=== PATIENT | male | born 1970 | race American Indian/Alaskan Native ===

== ENCOUNTER 2019-03-07 18:58 | Emergency (ER) | payer OTHER ==
[2019-03-07] MEDS ORDERED: ATROVENT IH ONE ×3 (19:25→21:02)
[2019-03-07] MEDS ORDERED: XOPENEX IH ONE ×2 (19:25→21:03)
[2019-03-07] MEDS ORDERED: LEVALBUTEROL IH ONE ×2 (19:25→19:36)
[2019-03-07] MEDS ORDERED: SOLU-Medrol IV ONE (19:27)
[2019-03-07] MEDS ORDERED: MAGNESIUM SULFATE 2GM/50ML 2 GM/50 ML BAG IV ONE (19:27)
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
--- NOTE | 2019-03-07 20:07 | XRay Report ---
CHEST 1 VIEW 7:29 PM INDICATION / CLINICAL INFORMATION: SOB. Asthma. COMPARISON: None available. FINDINGS: SUPPORT DEVICES: None. HEART / MEDIASTINUM: The heart size and pulmonary vasculature are normal. LUNGS / PLEURA: No significant pulmonary or pleural abnormality. No pneumothorax. ADDITIONAL FINDINGS: No significant additional findings. IMPRESSION: No acute findings. Signer Name: Kalyan Stacy MD Signed: 03/07/2019 8:03 PM Workstation Name: [id number]
[2019-03-07 20:13] LABS: Basophils # (Auto) 0.1 K/mm3 (0.0-0.1); Basophils % (Auto) 0.9 % (0.0-1.8); Eosinophils # (Auto) 0.8 K/mm3 (0.0-0.4); Eosinophils % (Auto) 10.2 % (0.0-4.3); Hematocrit 43.2 % (35.5-45.6); Hemoglobin 14.1 gm/dl (11.8-15.2); Lymphocytes # (Auto) 2.6 K/mm3 (1.2-5.4); Lymphocytes % (Auto) 34.2 % (13.4-35.0); Mean Corpuscular HGB Conc 33 % (32-34); Mean Corpuscular Volume 86 fl (84-94); Monocytes # (Auto) 0.7 K/mm3 (0.0-0.8); Monocytes % (Auto) 8.8 % (0.0-7.3); Platelet Count 263 K/mm3 (140-440); Red Blood Count 5.02 M/mm3 (3.65-5.03); Red Cell Distribution Width 16.2 % (13.2-15.2)
[2019-03-07 20:53] LABS: BUN/Creatinine Ratio 11; Blood Urea Nitrogen 11 mg/dL (9-20); Calcium 9.1 mg/dL (8.4-10.2); Hemolysis Index 26
[2019-03-07 22:26] VITALS: BP 144/74
== END 2019-03-07 22:33 | disposition home or self-care (01) ==
LOC: ED 18:58
DX: J45.901 Unspecified asthma with (acute) exacerbation (principal); Z88.8 Allergy status to other drugs, medicaments and biological substances
CPT/HCPCS: 36415; 71045; 80048; 83880; 85025; 93005; 93010; 94640; 94644; 94760; 96365; 96375; 99284; J2930; J3475

== ENCOUNTER 2019-03-31 00:06 | Inpatient (IN) | payer OTHER ==
[2019-03-31] MEDS ORDERED: XOPENEX IH ONE (00:12)
[2019-03-31] MEDS ORDERED: ATROVENT IH ONE (00:13)
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
[2019-03-31 00:54] LABS: Basophils % (Auto) 0.7 % (0.0-1.8); Eosinophils # (Auto) 0.6 K/mm3 (0.0-0.4); Eosinophils % (Auto) 8.6 % (0.0-4.3); Hematocrit 44.2 % (35.5-45.6); Hemoglobin 14.4 gm/dl (11.8-15.2); Lymphocytes # (Auto) 2.7 K/mm3 (1.2-5.4); Lymphocytes % (Auto) 37.3 % (13.4-35.0); Mean Corpuscular HGB Conc 33 % (32-34); Mean Corpuscular Volume 86 fl (84-94); Monocytes # (Auto) 0.6 K/mm3 (0.0-0.8); Monocytes % (Auto) 8.5 % (0.0-7.3); Platelet Count 258 K/mm3 (140-440); Red Blood Count 5.13 M/mm3 (3.65-5.03); Red Cell Distribution Width 15.9 % (13.2-15.2)
--- NOTE | 2019-03-31 01:05 | XRay Report ---
CHEST 1 VIEW INDICATION / CLINICAL INFORMATION: sob. COMPARISON: 03/07/2019 FINDINGS: SUPPORT DEVICES: None. HEART / MEDIASTINUM: No significant abnormality. LUNGS / PLEURA: No significant pulmonary or pleural abnormality. No pneumothorax. ADDITIONAL FINDINGS: No significant additional findings. IMPRESSION: No acute disease or interval change from 03/07/2019 Signer Name: Nnamdi Henriquez MD FACR Signed: 03/31/2019 1:00 AM Workstation Name: [id number]
[2019-03-31 01:15] LABS: BUN/Creatinine Ratio 15; Blood Urea Nitrogen 15 mg/dL (9-20); Calcium 8.7 mg/dL (8.4-10.2); Hemolysis Index 39
[2019-03-31] MEDS ORDERED: APRESOLINE IV ONE (02:05)
[2019-03-31] MEDS ORDERED: XOPENEX IH PRN (02:50)
[2019-03-31] MEDS ORDERED: ATROVENT IH PRN (02:51)
[2019-03-31] MEDS ORDERED: APRESOLINE IV PRN (02:52)
[2019-03-31] MEDS ORDERED: TYLENOL PO PRN (02:55)
[2019-03-31] MEDS ORDERED: ZOFRAN IV PRN (02:55)
[2019-03-31] MEDS ORDERED: ROBITUSSIN PO PRN (02:56)
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
[2019-03-31] MEDS: SOLU-Medrol IV SCH ×3 (05:44→21:48)
[2019-03-31] MEDS: HEPARIN SUB-Q SCH ×2 (09:20→21:49)
[2019-03-31] MEDS: LEVAQUIN 750MG/150ML 750 MG/150 ML BAG IV SCH (09:22)
--- NOTE | 2019-03-31 15:56 | Event Note ---
Patient admitted today for acute severe asthma exacerbation with hypoxia. We will continue current management with plan for discharge when medically stable
[2019-03-31] MEDS: XOPENEX IH SCH (16:49)
[2019-03-31] MEDS: PULMICORT IH SCH (20:47)
[2019-04-01] MEDS: XOPENEX IH SCH ×3 (00:26→14:33)
[2019-04-01] MEDS: SOLU-Medrol IV SCH (05:35)
[2019-04-01] MEDS: PULMICORT IH SCH (08:52)
[2019-04-01] MEDS: HEPARIN SUB-Q SCH (10:32)
[2019-04-01] MEDS: LEVAQUIN 750MG/150ML 750 MG/150 ML BAG IV SCH (10:32)
[2019-04-01 12:14] VITALS: BP 145/78
--- NOTE | 2019-04-01 15:39 | Discharge Summary ---
Providers - Providers Date of Admission: 03/31/19 02:46 Date of discharge: 04/01/19 Attending physician: YONATAN MCDONNELL [facility] Reason for admission: Acute severe asthma exacerbation, Acute respiratory failure Condition: Stable Pertinent studies: Chest x-ray: Negative Hospital course: Final discharge diagnosis: -Acute severe persistent asthma exacerbation -Acute respiratory failure with hypercapnia -Hypertensive emergency with BP of 229/141 -New diagnosis of diabetes mellitus with hemoglobin A1c of 6.5 -SIRS due to noninfectious cause -Obesity with BMI of 35 Hospital course: In the ED, patient was placed on BiPAP. He also received antihypertensives for blood pressure control. On admission, he was placed on IV steroids, antibiotic, nebulizer breathing treatments and oxygen supplementation. Subsequently, he improved clinically and was then deemed stable for discharge with clinic follow- up. For the hyperglycemia, hemoglobin A1c was done which came back at 6.5, indicative of diabetes mellitus. Patient was given the option of oral medication versus diet/exercise control and he opted for the later. Disposition: DC- TO HOME OR SELFCARE Time spent for discharge: 38 minutes Core Measure Documentation - Palliative Care Palliative Care/ Comfort Measures: Not Applicable - Core Measures Any of the following diagnoses?: none Exam - Constitutional Vitals: Temp Pulse Resp BP Pulse Ox 97.8 F 73 18 145/78 99 04/01/19 12:06 04/01/19 12:06 04/01/19 12:06 04/01/19 12:06 04/01/19 12:06 General appearance: Present: no acute distress, obese - EENT Eyes: Present: PERRL, EOM intact ENT: hearing intact, clear oral mucosa - Neck Neck: Present: supple, normal ROM - Respiratory Respiratory effort: normal Respiratory: bilateral: CTA - Cardiovascular Rhythm: regular Heart Sounds: Present: S1 & S2. Absent: rub, click - Extremities Extremities: pulses symmetrical, No edema Peripheral Pulses: within normal limits - Abdominal General gastrointestinal: Present: soft, non-tender, non-distended, normal bowel sounds Male genitourinary: Present: deferred - Integumentary Integumentary: Present: clear, warm, dry - Musculoskeletal Musculoskeletal: gait normal, strength equal bilaterally - Psychiatric Psychiatric: appropriate mood/affect, intact judgment & insight - Neurologic Neurologic: CNII-XII intact, moves all extremities Plan Follow up with: DAYANA BLACK MD [Primary Care Provider] - 3-5 Days Prescriptions: predniSONE [Deltasone] 20 mg PO QDAY #5 tab Levalbuterol 1 dose IH Q4HR PRN #30 PRN Reason: Wheezing levoFLOXacin [Levaquin TAB] 500 mg PO Q24HR #3 tablet Levalbuterol Hfa 45 Mcg/Puff [Xopenex Hfa (Nf)] 2 puff IH Q6H PRN #1 inhalation PRN Reason: Shortness Of Breath
[2019-04-02] MEDS ORDERED: LEVAQUIN PO SCH (10:00)
== END 2019-04-01 15:41 | disposition home or self-care (01) | DRG 189 ==
LOC: ED 00:06 → 4A 02:46
PROVIDERS: ADMIT Internal Medicine; ATTEND Internal Medicine
PROC: 4A033R1 Measurement of Arterial Saturation, Peripheral, Percutaneous Approach (ICD-10-PCS; principal; 2019-03-31)
PROC: 5A09357 Assistance with Respiratory Ventilation, Less than 24 Consecutive Hours, Continuous Positive Airway Pressure (ICD-10-PCS; 2019-03-31)
DX: J96.01 Acute respiratory failure with hypoxia (principal); J45.52 Severe persistent asthma with status asthmaticus; R65.10 Systemic inflammatory response syndrome (SIRS) of non-infectious origin without acute organ dysfunction; I16.1 Hypertensive emergency; I16.9 Hypertensive crisis, unspecified; J96.02 Acute respiratory failure with hypercapnia; I16.0 Hypertensive urgency; E66.9 Obesity, unspecified; E11.65 Type 2 diabetes mellitus with hyperglycemia; Z88.8 Allergy status to other drugs, medicaments and biological substances; Z68.35 Body mass index [BMI] 35.0-35.9, adult
CPT/HCPCS: 36415; 71045; 80048; 82803; 83036; 85025; 94640; 94644; 94760; G0378; J0360; J1644; J1956; J2930

== ENCOUNTER 2019-04-22 18:35 | Emergency (ER) | payer SELFPAY ==
[2019-04-22 19:05] VITALS: BP 165/114
[2019-04-22] MEDS ORDERED: ATROVENT IH ONE ×2 (19:05→21:39)
[2019-04-22] MEDS ORDERED: XOPENEX IH ONE ×2 (19:05→21:39)
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
[2019-04-22] MEDS ORDERED: DECADRON IM ONE (19:06)
[2019-04-22] MEDS ORDERED: MAGNESIUM SULFATE 2GM/50ML 2 GM/50 ML BAG IV ONE (19:26)
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
[2019-04-22 19:49] LABS: Basophils % (Auto) 0.5 % (0.0-1.8); Eosinophils # (Auto) 0.4 K/mm3 (0.0-0.4); Eosinophils % (Auto) 4.5 % (0.0-4.3); Hematocrit 43.8 % (35.5-45.6); Hemoglobin 14.5 gm/dl (11.8-15.2); Lymphocytes # (Auto) 1.7 K/mm3 (1.2-5.4); Lymphocytes % (Auto) 20.8 % (13.4-35.0); Mean Corpuscular HGB Conc 33 % (32-34); Mean Corpuscular Volume 86 fl (84-94); Monocytes # (Auto) 0.7 K/mm3 (0.0-0.8); Monocytes % (Auto) 8.3 % (0.0-7.3); Platelet Count 208 K/mm3 (140-440); Red Blood Count 5.11 M/mm3 (3.65-5.03); Red Cell Distribution Width 15.6 % (13.2-15.2)
--- NOTE | 2019-04-22 20:15 | XRay Report ---
CHEST 1 VIEW 04/22/2019 7:43 PM INDICATION / CLINICAL INFORMATION: Shortness of breath. Asthma exacerbation. COMPARISON: One view of the chest from 03/31/2019. FINDINGS: SUPPORT DEVICES: None. HEART / MEDIASTINUM: No significant abnormality. LUNGS / PLEURA: No significant pulmonary or pleural abnormality. No pneumothorax. ADDITIONAL FINDINGS: No significant additional findings. IMPRESSION: No significant abnormality of the chest. Signer Name: Bony Bright MD Signed: 04/22/2019 8:10 PM Workstation Name: [id number]
[2019-04-22 21:08] LABS: Albumin 4.1 g/dL (3.9-5); BUN/Creatinine Ratio 12; Blood Urea Nitrogen 12 mg/dL (9-20); Calcium 9.4 mg/dL (8.4-10.2); Hemolysis Index 255
[2019-04-22 21:20] LABS: Alanine Aminotransferase 15 units/L (7-56)
== END 2019-04-22 22:38 | disposition left against medical advice (07) ==
LOC: ED 18:35
DX: R06.03 Acute respiratory distress (principal); R09.02 Hypoxemia; J45.902 Unspecified asthma with status asthmaticus; I10 Essential (primary) hypertension; Z98.890 Other specified postprocedural states; Z79.899 Other long term (current) drug therapy; Z88.8 Allergy status to other drugs, medicaments and biological substances
CPT/HCPCS: 36415; 71045; 80053; 85025; 94640; 96365; 96372; 99291; J1100; J3475; 94644

== ENCOUNTER 2020-09-03 17:40 | Emergency (ER) | payer SELFPAY ==
[2020-09-03] MEDS ORDERED: predniSONE 20 MG TAB PO ONE ×2 (18:09→21:36)
[2020-09-03] MEDS ORDERED: IPRATROPIUM/ALBUTEROL SULFATE 3 ML AMPUL.NEB IH ONE (18:09)
--- NOTE | 2020-09-03 18:10 | Event Note ---
ED Screening Note Date of service: 09/03/20 Time: 18:09 ED Screening Note: Complains of asthma exacerbation Ran out of albuterol inhaler + Wheezing noted on exam This initial assessment/diagnostic orders/clinical plan/treatment(s) is/are subject to change based on patients health status, clinical progression and re- assessment by fellow clinical providers in the ED. Further treatment and workup at subsequent clinical providers discretion. Patient/guardian urged not to elope from the ED as their condition may be serious if not clinically assessed and managed. Initial orders include: DuoNeb Prednisone
[2020-09-03] MEDS ORDERED: LEVALBUTEROL 0.63 MG/3 ML NEBU IH ONE (20:49)
[2020-09-03] MEDS ORDERED: IPRATROPIUM 0.02% NEBU 2.5 ML IH ONE (20:50)
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
[2020-09-03 23:04] VITALS: BP 162/98
== END 2020-09-03 22:00 | disposition home or self-care (01) ==
LOC: ED 17:40
DX: J45.901 Unspecified asthma with (acute) exacerbation (principal); I10 Essential (primary) hypertension; Z79.899 Other long term (current) drug therapy; Z98.890 Other specified postprocedural states; Z88.8 Allergy status to other drugs, medicaments and biological substances
CPT/HCPCS: 94640; 99283; J7512; 94644

== ENCOUNTER 2020-12-30 19:56 | Observation (INO) | payer OTHER ==
[2020-12-30] MEDS ORDERED: IPRATROPIUM 0.02% NEBU 2.5 ML IH ONE (19:58)
[2020-12-30] MEDS ORDERED: EPINEPHrine/PF 1 MG/1 ML INJ SUB-Q ONE (19:58)
[2020-12-30] MEDS ORDERED: LEVALBUTEROL 0.63 MG/3 ML NEBU IH ONE ×2 (19:58→20:00)
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
[2020-12-30 20:45] LABS: Hematocrit 45.3 % (35.5-45.6); Hemoglobin 14.9 gm/dl (11.8-15.2); Mean Corpuscular HGB Conc 33 % (32-34); Mean Corpuscular Volume 87 fl (84-94); Red Cell Distribution Width 14.8 % (13.2-15.2)
[2020-12-30 20:51] LABS: ABG Base Excess -1.5 mmol/L (-2.0-3.0); ABG HCO3 24.7 mmol/L (20.0-26.0); ABG Methemoglobin 0.6 % (0.0-1.5); ABG Oxygen Saturation 90.1 % (95.0-99.0); ABG PCO2 47.3 mm Hg; ABG PH 7.336 pH Units (7.350-7.450); ABG PO2 59.7 mm Hg (80.0-90.0)
--- NOTE | 2020-12-30 20:52 | XRay Report ---
CHEST 1 VIEW INDICATION: dyspnea COMPARISON: 04/22/2019 FINDINGS: Support devices: None Heart: Normal Lungs/Pleura: No acute pulmonary or pleural findings. IMPRESSION: 1. No acute disease and no interval change. Signer Name: Dannie Coto MD Signed: 12/30/2020 8:48 PM Workstation Name: [id number]
[2020-12-30 20:58] LABS: INR 0.92 (0.87-1.13)
[2020-12-30 21:00] LABS: Alanine Aminotransferase 21 units/L (7-56); Albumin 3.8 g/dL (3.9-5); BUN/Creatinine Ratio 10; Blood Urea Nitrogen 9 mg/dL (9-20); Calcium 8.3 mg/dL (8.4-10.2); Hemolysis Index 63
[2020-12-30 21:06] LABS: C-Reactive Protein 0.1 mg/dL (0.00-1.30)
[2020-12-30 21:51] LABS: Platelet Count 209 K/mm3 (140-440)
[2020-12-30] MEDS ORDERED: SODIUM CHLORIDE 0.9% 500 ML 500 ML IV ONE (21:54)
[2020-12-30] MEDS ORDERED: MORPHINE 2 MG/1 ML INJ IV PRN (22:15)
[2020-12-30] MEDS ORDERED: ACETAMINOPHEN 325 MG TAB PO PRN (22:15)
[2020-12-30] MEDS ORDERED: ONDANSETRON 4 MG/2 ML INJ IV PRN (22:15)
[2020-12-30] MEDS ORDERED: MAGNESIUM HYDROXIDE (MOM) ORAL LIQD UDC PO PRN (22:15)
--- NOTE | 2020-12-30 22:28 | History and Physical Report ---
History of Present Illness Date of examination: 12/30/20 Date of admission: 12/30/2020 Chief complaint: Shortness of Breath History of present illness: 50-year-old male with known history of hypertension, obesity, asthma with 2 intubations in the past and a history of COVID-19 presenting to the emergency room today via EMS with shortness of breath over the past few days. He denies any fever or chills, no chest pain, no nausea or vomiting, no headache or dizziness, no diaphoresis. Patient denies any sick contacts and no recent travel. Denies any contact with anyone with COVID-19. Patient was said to be in severe respiratory distress in the field which requir ed nonrebreather and was subsequently given epinephrine, magnesium and steroids. Upon arrival in the emergency room patient was placed on BiPAP and also had nebulizing treatments with Xopenex. He thereafter had significant improvement with his breathing. Patient also indicates that he has had chronic bilateral lower extremity swelling. He has not had any lower extremity pain. Work-up in the emergency room today including chest x-ray was unremarkable. Patient is being admitted with acute respiratory failure secondary to asthma exacerbation. Past History Past Medical History: hypertension, other (Asthma-intubated x2 in the past, obesity, COVID-19 x2. ) Social history: no significant social history Family history: no significant family history Medications and Allergies Allergies Allergy/AdvReac Type Severity Reaction Status Date / Time albuterol AdvReac Shortness Verified 04/22/19 18:39 of Breath Home Medications Medication Instructions Recorded Confirmed Last Taken Type Lisinopril/Hydrochlorothiazide 2 tab PO QDAY 03/31/19 03/31/19 1 Day Ago History ~03/30/19 levoFLOXacin [Levaquin TAB] 500 mg PO Q24HR #3 tablet 04/01/19 Unknown Rx methylPREDNISolone [Medrol 4MG 4 mg PO DAILY 6 Days #1 tab.ds.pk 04/22/19 Unknown Rx DOSEPAK (21 tabs)] Levalbuterol 1 dose IH Q4HR PRN #30 09/03/20 Unknown Rx Levalbuterol Hfa 45 Mcg/Puff 2 puff IH Q6H PRN #1 inhalation 09/03/20 Unknown Rx [Xopenex Hfa (Nf)] predniSONE [Deltasone] 20 mg PO QDAY #5 tab 09/03/20 Unknown Rx Active Meds: Active Medications Acetaminophen (Acetaminophen 325 Mg Tab) 650 mg PO Q4H PRN PRN Reason: Pain MILD(1-3)/Fever >100.5/PANIAGUA Albuterol/Ipratropium (Ipratropium/Albuterol Sulfate 3 Ml Ampul.Neb) 1 ampul IH Q6HRT DEBORA Enoxaparin Sodium (Enoxaparin 40 Mg/0.4 Ml Inj) 40 mg SUB-Q QDAY@2200 DEBORA; Protocol Magnesium Hydroxide (Magnesium Hydroxide (Mom) Oral Liqd Udc) 30 ml PO Q4H PRN PRN Reason: Constipation Methylprednisolone Sodium Succinate (Methylprednisolone Sod Succinate 40 Mg/1 Ml Inj) 40 mg IV Q8HR DEBORA Morphine Sulfate (Morphine 2 Mg/1 Ml Inj) 2 mg IV Q4H PRN PRN Reason: Pain, Moderate (4-6) Ondansetron HCl (Ondansetron 4 Mg/2 Ml Inj) 4 mg IV Q8H PRN PRN Reason: Nausea And Vomiting Sodium Chloride (Sodium Chloride 0.9% 10 Ml Flush Syringe) 10 ml IV BID DEBORA Sodium Chloride (Sodium Chloride 0.9% 10 Ml Flush Syringe) 10 ml IV PRN PRN PRN Reason: LINE FLUSH Review of Systems Constitutional: no fever, no chills Ears, nose, mouth and throat: no nasal congestion, no sore throat Cardiovascular: no chest pain, no palpitations Respiratory: shortness of breath, no cough Gastrointestinal: no abdominal pain, no nausea, no vomiting, no diarrhea Genitourinary Male: no dysuria, no hematuria, no flank pain, no nocturia Musculoskeletal: no neck pain, no low back pain Integumentary: no rash, no pruritis Neurological: no headaches, no confusion Psychiatric: no anxiety, no depression Endocrine: no polyphagia, no polydipsia, no polyuria, no nocturia Exam - Constitutional Vitals: Temp Pulse Resp BP Pulse Ox 98.3 F 100 H 20 148/107 98 12/30/20 20:49 12/30/20 20:57 12/30/20 20:57 12/30/20 20:57 12/30/20 20:57 General appearance: Present: no acute distress, obese - EENT Eyes: Present: PERRL, EOM intact. Absent: scleral icterus ENT: hearing intact, clear oral mucosa, dentition normal - Neck Neck: Present: supple, normal ROM - Respiratory Respiratory effort: normal Respiratory: bilateral: wheezing - Cardiovascular Rhythm: regular Heart Sounds: Present: S1 & S2. Absent: gallop, systolic murmur, diastolic murmur, rub, click - Extremities Extremities: no ischemia, pulses intact, pulses symmetrical, normal temperature, Full ROM Extremity abnormal: edema (1+ bilateral lower extremity edema) Peripheral Pulses: within normal limits - Abdominal General gastrointestinal: Present: soft, non-tender, non-distended, normal bowel sounds. Absent: mass - Integumentary Integumentary: Present: clear, warm, dry. Absent: rash - Musculoskeletal Musculoskeletal: strength equal bilaterally - Psychiatric Psychiatric: appropriate mood/affect, intact judgment & insight, memory intact, cooperative - Neurologic Neurologic: CNII-XII intact, no focal deficits, moves all extremities HEART Score - HEART Score Troponin: Troponin T < 0.010 ng/mL (0.00-0.029) 12/30/20 20:13 Results - Labs CBC & Chem 7: 12/31/20 04:49 12/31/20 04:49 Labs: Abnormal lab results 12/30/20 12/30/20 12/30/20 Range/Units 20:13 20:13 20:13 RBC 5.20 H (3.65-5.03) M/mm3 D-Dimer 345.99 H (0-234) ng/mlDDU ABG pH (7.350-7.450) pH Units ABG pO2 (80.0-90.0) mm Hg ABG O2 Saturation (95.0-99.0) % Oxyhemoglobin (95.0-99.0) % Sodium 136 L (137-145) mmol/L Glucose 126 H (75-100) mg/dL Calcium 8.3 L (8.4-10.2) mg/dL Magnesium 2.40 H (1.7-2.3) mg/dL Lactate Dehydrogenase 305 H (91-180) units/L Total Creatine Kinase 476 H (55-170) units/L Albumin 3.8 L (3.9-5) g/dL 12/30/20 12/30/20 Range/Units 20:13 20:40 RBC (3.65-5.03) M/mm3 D-Dimer (0-234) ng/mlDDU ABG pH 7.336 L (7.350-7.450) pH Units ABG pO2 59.7 L (80.0-90.0) mm Hg ABG O2 Saturation 90.1 L (95.0-99.0) % Oxyhemoglobin 88.4 L (95.0-99.0) % Sodium (137-145) mmol/L Glucose 126 H (75-100) mg/dL Calcium (8.4-10.2) mg/dL Magnesium (1.7-2.3) mg/dL Lactate Dehydrogenase 246 H (91-180) units/L Total Creatine Kinase (55-170) units/L Albumin (3.9-5) g/dL Assessment and Plan - Patient Problems (1) Status asthmaticus Current Visit: Yes Status: Acute Plan to address problem: Patient placed on nebulizing treatments and IV steroid. Consult will be placed to audit analyst for evaluation and recommendation. (2) Acute hypoxemic respiratory failure Current Visit: Yes Status: Acute Plan to address problem: Secondary to the asthma exacerbation. We will keep oxygen saturation greater equal to 94%. (3) Hypertension Current Visit: Yes Status: Acute Plan to address problem: We will resume routine home medications and monitor vital signs closely. (4) Suspected 2019 novel coronavirus infection Current Visit: Yes Status: Acute Plan to address problem: Patient placed on isolation precautions. We will await COVID-19 testing. Consult placed to infectious disease. (5) DVT prophylaxis Current Visit: Yes Status: Acute Plan to address problem: Patient placed on subcutaneous Lovenox. (6) Full code status Current Visit: Yes Status: Acute Plan to address problem: Patient is a full code.
[2020-12-31] MEDS ORDERED: IPRATROPIUM/ALBUTEROL SULFATE 3 ML AMPUL.NEB IH SCH (02:00)
[2020-12-31] MEDS: LEVALBUTEROL 1.25 MG/3 ML NEB IH SCH ×3 (03:13→16:16)
[2020-12-31 06:09] LABS: BUN/Creatinine Ratio 12; Blood Urea Nitrogen 11 mg/dL (9-20); Calcium 8.9 mg/dL (8.4-10.2); Hemolysis Index 3
[2020-12-31 06:21] LABS: Basophils % (Auto) 0.1 % (0.0-1.8); Eosinophils % (Auto) 0.1 % (0.0-4.3); Hematocrit 46.2 % (35.5-45.6); Hemoglobin 14.8 gm/dl (11.8-15.2); Lymphocytes # (Auto) 0.6 K/mm3 (1.2-5.4); Lymphocytes % (Auto) 11.8 % (13.4-35.0); Mean Corpuscular HGB Conc 32 % (32-34); Mean Corpuscular Volume 87 fl (84-94); Monocytes # (Auto) 0.1 K/mm3 (0.0-0.8); Monocytes % (Auto) 1.2 % (0.0-7.3); Platelet Count 246 K/mm3 (140-440); Red Blood Count 5.29 M/mm3 (3.65-5.03)
[2020-12-31 06:31] LABS: INR 0.97 (0.87-1.13)
[2020-12-31] MEDS: methylPREDNISolone Sod Succinate 40 MG/1 ML INJ IV SCH ×2 (07:52→14:22)
--- NOTE | 2020-12-31 08:45 | Cat Scan Report ---
CTA CHEST WITH CONTRAST INDICATION / CLINICAL INFORMATION: MAIN. TECHNIQUE: Axial CT images were obtained through the chest after injection of IV contrast. 3 plane FL P and/or 3D reconstructions were produced. All CT scans at this location are performed using CT dose reduction for ALARA by means of automated exposure control. COMPARISON: None available. FINDINGS: Central pulmonary arteries and segmental pulmonary arteries appear patent without filling defect. Per ipheral pulmonary arteries not as well-seen due to contrast timing. No focal consolidation pleural ef fusion. Nodular density left upper lung measures 8 mm adjacent to the fissure. Several small nodular densitie s in the right upper lung.. Mild increased interstitial prominence and interstitial opacities in bila teral lower lungs. No acute bone findings are seen. IMPRESSION: 1. No evidence for central PTE. The peripheral pulmonary arteries more difficult to evaluate due to c ontrast bolus timing and motion. 2. Bilateral increased interstitial prominence in the lung bases. Findings could represent mild edema and/or developing infiltrate. 3. Bilateral upper lobe nodular densities measuring up to 8 mm. Please see recommendations below. INCIDENTAL PULMONARY NODULE RECOMMENDATION RECOMMENDATION: Solid Nodule size 6-8 mm -- Multiple - Low Risk Patient: CT at 3-6 months, then consider CT at 18-24 months - High Risk Patient: CT at 3-6 months, then CT at 18-24 month Note These recommendations do not apply to lung cancer screening, patients with immunosuppression, o r patients with known primary cancer. Note Newly detected indeterminate nodule in persons 35 years of age or older. Persons under the age of 35 should not receive follow-up unless there is a known primary cancer. Note Perifissural Nodule is a fissure-attached/subpleural, homogeneous, solid nodule that has smooth margins and an oval, lentiform, or triangular shape. They represent about 20% of nodules detected in lung cancer screening, are invariably benign, and do not require follow-up. Nodules 10 mm or larger (or those with suspicious features) will continue to be managed based on the size criteria. Low Risk Patient = minimal or absent history of smoking and of other known risk factors. High Risk Patient = history of smoking or of other known risk factors. Nodule dimensions are average of long and short axes, rounded to the nearest millimeter. Based on 2017 Fleischner Society Guidelines found in Radiology 2017 284:228-243. https://doi.[email or web address] https://www.ncbi.nlm.nih.gov/pmc/articles/TEH3050348/ Signer Name: Booker Albert MD Signed: 12/31/2020 8:41 AM Workstation Name: [id number]
[2020-12-31] MEDS ORDERED: SODIUM BICARB 8.4% 50 MEQ/50 ML SYRINGE IV ONE (10:57)
--- NOTE | 2020-12-31 11:06 | Progress Note ---
Assessment and Plan --Status asthmaticus Patient placed on nebulizing treatments and IV steroid. Consult will be placed to project safety manager for evaluation and recommendation. -- Acute hypoxemic respiratory failure Secondary to the asthma exacerbation. We will keep oxygen saturation greater equal to 94%. -- Hypertension Resumed routine home medications and monitor vital signs closely. --hyperkalemia, follow BMP, will give sodium bicarbonate -- h/o 2018 novel coronavirus infection x2 Patient placed on isolation precautions. We will await repeat COVID-19 testing. Consult placed to infectious disease. --elevated d-dimer, CTA negative for PE --b/l LE swelling, will r/o CHF ordered 2d echo, started lasix iv -- DVT prophylaxis Patient placed on subcutaneous Lovenox. --Full code status Brief History: 50-year-old male with known history of hypertension, obesity, asthma with 2 intubations in the past and a history of COVID-19 presenting to the emergency room today via EMS with shortness of breath over the past few days. Upon arrival in the emergency room patient was placed on BiPAP and also had nebulizing treatments with Xopenex. Work-up in the emergency room today including chest x- ray was unremarkable. Patient was admitted with acute respiratory failure secondary to asthma exacerbation. 12/31: follow inflammatory markers, follow pending COVID test, supplemental O2 to keep o2 sat >92. ordered 2d echo, started lasix iv Subjective Date of service: 12/31/20 Interval history: Patient seen and examined. Medical records and medication list reviewed. No acute event overnight noted by the RN. Patient denies any chest pain but complains of difficulty breathing on exertion. Patient is tolerating diet. Covid test result pending Discussed plan of care at bedside with patient. Objective - Exam Narrative Exam: Limited physical exam due to COVID-19 pandemic to minimize transmission of the disease and to preserve PPE. Vital reviewed and stable. GENERAL: well-developed well-nourished lying on bed appeared to be in no discomfort. HEENT: Normocephalic. Atraumatic. NECK: Supple. CHEST/LUNGS: breathing nonlabored. HEART/CARDIOVASCULAR: Heart rate stable on telemetry ABDOMEN: Visibly not distended SKIN: There is no rash NEURO: No focal motor deficit. Follows command. MUSCULOSKELETAL: No joint effusion EXTRIMITY: No swelling, no cyanosis or clubbing. PSYCH: Cooperative. - Constitutional Vitals: Vital Signs - 12hr 12/30/20 12/30/20 12/30/20 23:00 23:02 23:15 Temperature Pulse Rate 84 88 86 Pulse Rate [ Bilateral Throughout] Respiratory 19 15 18 Rate Respiratory Rate [Bilateral Throughout] Blood Pressure 146/113 149/90 Blood Pressure [Left] O2 Sat by Pulse 95 95 94 Oximetry 12/30/20 12/30/20 12/31/20 23:30 23:45 00:00 Temperature Pulse Rate 88 91 H 91 H Pulse Rate [ Bilateral Throughout] Respiratory 22 22 20 Rate Respiratory Rate [Bilateral Throughout] Blood Pressure 165/89 165/97 156/97 Blood Pressure [Left] O2 Sat by Pulse 94 96 95 Oximetry 12/31/20 12/31/20 12/31/20 00:15 00:30 00:45 Temperature Pulse Rate 100 H 83 81 Pulse Rate [ Bilateral Throughout] Respiratory 16 16 15 Rate Respiratory Rate [Bilateral Throughout] Blood Pressure 163/107 164/90 161/95 Blood Pressure [Left] O2 Sat by Pulse 96 95 97 Oximetry 12/31/20 12/31/20 12/31/20 01:00 01:15 01:30 Temperature Pulse Rate 84 89 87 Pulse Rate [ Bilateral Throughout] Respiratory 15 20 18 Rate Respiratory Rate [Bilateral Throughout] Blood Pressure 149/98 148/102 156/106 Blood Pressure [Left] O2 Sat by Pulse 96 94 92 Oximetry 12/31/20 12/31/20 12/31/20 01:45 02:00 02:15 Temperature Pulse Rate 94 H 89 Pulse Rate [ Bilateral Throughout] Respiratory 15 22 Rate Respiratory Rate [Bilateral Throughout] Blood Pressure 162/106 162/106 159/101 Blood Pressure [Left] O2 Sat by Pulse 96 95 95 Oximetry 12/31/20 12/31/20 12/31/20 02:30 02:45 03:00 Temperature Pulse Rate Pulse Rate [ Bilateral Throughout] Respiratory Rate Respiratory Rate [Bilateral Throughout] Blood Pressure 134/71 147/101 147/101 Blood Pressure [Left] O2 Sat by Pulse 95 95 91 Oximetry 12/31/20 12/31/20 12/31/20 03:13 03:15 03:30 Temperature Pulse Rate Pulse Rate [ 97 H Bilateral Throughout] Respiratory Rate Respiratory 20 Rate [Bilateral Throughout] Blood Pressure 151/95 142/93 Blood Pressure [Left] O2 Sat by Pulse 97 94 Oximetry 12/31/20 12/31/20 12/31/20 03:46 04:00 04:16 Temperature Pulse Rate 97 H 92 H 87 Pulse Rate [ Bilateral Throughout] Respiratory 17 18 15 Rate Respiratory Rate [Bilateral Throughout] Blood Pressure 142/93 155/86 155/86 Blood Pressure [Left] O2 Sat by Pulse 94 94 93 Oximetry 12/31/20 12/31/20 12/31/20 04:30 04:46 05:00 Temperature Pulse Rate 89 96 H 86 Pulse Rate [ Bilateral Throughout] Respiratory 15 13 13 Rate Respiratory Rate [Bilateral Throughout] Blood Pressure 155/86 155/86 174/88 Blood Pressure [Left] O2 Sat by Pulse 95 93 96 Oximetry 12/31/20 12/31/20 12/31/20 05:16 05:30 05:46 Temperature Pulse Rate 84 87 86 Pulse Rate [ Bilateral Throughout] Respiratory 13 14 14 Rate Respiratory Rate [Bilateral Throughout] Blood Pressure 174/88 174/88 174/88 Blood Pressure [Left] O2 Sat by Pulse 95 95 92 Oximetry 12/31/20 12/31/20 12/31/20 06:00 06:16 06:30 Temperature Pulse Rate 98 H 84 85 Pulse Rate [ Bilateral Throughout] Respiratory 13 14 15 Rate Respiratory Rate [Bilateral Throughout] Blood Pressure 173/104 173/104 173/104 Blood Pressure [Left] O2 Sat by Pulse 91 95 93 Oximetry 12/31/20 12/31/20 12/31/20 06:46 07:00 07:16 Temperature Pulse Rate 84 102 H 80 Pulse Rate [ Bilateral Throughout] Respiratory 15 13 14 Rate Respiratory Rate [Bilateral Throughout] Blood Pressure 173/104 163/115 163/115 Blood Pressure [Left] O2 Sat by Pulse 95 94 93 Oximetry 12/31/20 12/31/20 12/31/20 07:30 07:46 08:00 Temperature 98.5 F Pulse Rate 94 H 92 H 91 H Pulse Rate [ Bilateral Throughout] Respiratory 16 22 15 Rate Respiratory Rate [Bilateral Throughout] Blood Pressure 163/115 163/115 181/95 Blood Pressure 170/90 [Left] O2 Sat by Pulse 93 93 95 Oximetry 12/31/20 08:16 Temperature Pulse Rate 98 H Pulse Rate [ Bilateral Throughout] Respiratory 15 Rate Respiratory Rate [Bilateral Throughout] Blood Pressure 173/108 Blood Pressure [Left] O2 Sat by Pulse 96 Oximetry - Labs CBC & Chem 7: 12/31/20 04:49 12/31/20 04:49 Labs: Abnormal lab results 12/30/20 12/30/20 12/30/20 Range/Units 20:13 20:13 20:13 RBC 5.20 H (3.65-5.03) M/mm3 Hct (35.5-45.6) % Lymph % (Auto) (13.4-35.0) % Lymph # (Auto) (1.2-5.4) K/mm3 Seg Neutrophils % (40.0-70.0) % D-Dimer 345.99 H (0-234) ng/mlDDU ABG pH (7.350-7.450) pH Units ABG pO2 (80.0-90.0) mm Hg ABG O2 Saturation (95.0-99.0) % Oxyhemoglobin (95.0-99.0) % Sodium 136 L (137-145) mmol/L Potassium (3.6-5.0) mmol/L Glucose 126 H (75-100) mg/dL Calcium 8.3 L (8.4-10.2) mg/dL Magnesium 2.40 H (1.7-2.3) mg/dL Lactate Dehydrogenase 305 H (91-180) units/L Total Creatine Kinase 476 H (55-170) units/L Albumin 3.8 L (3.9-5) g/dL 12/30/20 12/30/20 12/31/20 Range/Units 20:13 20:40 04:49 RBC 5.29 H (3.65-5.03) M/mm3 Hct 46.2 H (35.5-45.6) % Lymph % (Auto) 11.8 L (13.4-35.0) % Lymph # (Auto) 0.6 L (1.2-5.4) K/mm3 Seg Neutrophils % 86.8 H (40.0-70.0) % D-Dimer (0-234) ng/mlDDU ABG pH 7.336 L (7.350-7.450) pH Units ABG pO2 59.7 L (80.0-90.0) mm Hg ABG O2 Saturation 90.1 L (95.0-99.0) % Oxyhemoglobin 88.4 L (95.0-99.0) % Sodium (137-145) mmol/L Potassium (3.6-5.0) mmol/L Glucose 126 H (75-100) mg/dL Calcium (8.4-10.2) mg/dL Magnesium (1.7-2.3) mg/dL Lactate Dehydrogenase 246 H (91-180) units/L Total Creatine Kinase (55-170) units/L Albumin (3.9-5) g/dL 12/31/20 Range/Units 04:49 RBC (3.65-5.03) M/mm3 Hct (35.5-45.6) % Lymph % (Auto) (13.4-35.0) % Lymph # (Auto) (1.2-5.4) K/mm3 Seg Neutrophils % (40.0-70.0) % D-Dimer (0-234) ng/mlDDU ABG pH (7.350-7.450) pH Units ABG pO2 (80.0-90.0) mm Hg ABG O2 Saturation (95.0-99.0) % Oxyhemoglobin (95.0-99.0) % Sodium (137-145) mmol/L Potassium 5.1 H D (3.6-5.0) mmol/L Glucose 186 H (75-100) mg/dL Calcium (8.4-10.2) mg/dL Magnesium (1.7-2.3) mg/dL Lactate Dehydrogenase (91-180) units/L Total Creatine Kinase (55-170) units/L Albumin (3.9-5) g/dL HEART Score - HEART Score Troponin: Troponin T < 0.010 ng/mL (0.00-0.029) 12/30/20 20:13
[2020-12-31] MEDS ORDERED: carvediloL 6.25 MG TAB PO SCH (12:00)
[2020-12-31] MEDS ORDERED: amLODIPine 10 MG TAB PO SCH (12:00)
--- NOTE | 2020-12-31 14:29 | Consultation ---
History of Present Illness - Reason for Consult Consult date: 12/31/20 R/o COVID Requesting physician: SUSI CUELLAR - History of Present Illness 30-year-old male with history of asthma requiring intubations in the past, hypertension, obesity, COVID-19 infection in August 2021 and October 2020, admitted on 12/30/2020 secondary to 7-day history of worsening shortness of breath and cough. Patient was using his nebulizer without improvement. 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 Denies any fever, chills, nausea, vomiting, diarrhea. On arrival, temperature 98.3, HR 107, RR 24, BP 130/100, O2 sat 99%. Initial WBC 7.8. D-dimer 345. LDH 305. Ferritin 72. CRP 0.1. Procalcitonin<0.05. Blood culture on 12/30/2020 pending. Chest x-ray unremarkable. CT chest no PE, bilateral interstitial prominence. Review of Systems: positive in bold print General: fever, chills, malaise Cutaneous: rash, pruritus Head: headaches or injury Eyes: changes in vision, eye pain, double vision Ears: ear pain, ear discharge, ringing or hearing loss Nose: nose bleeding, stuffiness Mouth & throat: bleeding gums, horseness, no dental problems, or swollen glands Neck: no pain, node enlargement/lumps, tyroid enlargement or tenderness Respiratory: SOB, cough, JEFFERY, wheezing, sputum, hemoptysis, pleuritic chest pain Cardiovascular: chest pain, leg edema, cyanosis, JEFFERY, orthopnea Musculoskeletal: edema, deformities, pain Gastrointestinal: nausea, vomiting, hematemesis, diarrhea, constipation, melena, bright red blood in stools, fecal incontinence, jaundice Genitourinary/Reproductive: frequent urination, dysuria, hematuria, incontinence Neurogical: seizures, headaches, weakness, paresthesias, loss of speech or vision; memory loss, vertigo, tremors, numbness Psychiatric: stable mood; excessive anxiety, sadness or moodiness . Past History Past Medical History: hypertension, other (Asthma-intubated x2 in the past, obesity, COVID-19 x2. ) Social history: no significant social history Family history: no significant family history Medications and Allergies Allergies Allergy/AdvReac Type Severity Reaction Status Date / Time albuterol AdvReac Shortness Verified 04/22/19 18:39 of Breath Home Medications Medication Instructions Recorded Confirmed Last Taken Type Levalbuterol 1 dose IH Q4HR PRN #30 09/03/20 12/31/20 Unknown Rx Levalbuterol Hfa 45 Mcg/Puff 2 puff IH Q6H PRN #1 inhalation 09/03/20 12/31/20 Unknown Rx [Xopenex Hfa (Nf)] Losartan/Hydrochlorothiazide 1 each PO DAILY 12/31/20 12/31/20 Unknown History [Hyzaar 100-12.5 Tablet] Active Meds: Active Medications Acetaminophen (Acetaminophen 325 Mg Tab) 650 mg PO Q4H PRN PRN Reason: Pain MILD(1-3)/Fever >100.5/PANIAGUA Amlodipine Besylate (Amlodipine 10 Mg Tab) 10 mg PO QDAY [facility] Last Admin: 12/31/20 12:29 Dose: 10 mg Documented by: Carvedilol (Carvedilol 6.25 Mg Tab) 6.25 mg PO BID [facility] Last Admin: 12/31/20 12:29 Dose: 6.25 mg Documented by: Enoxaparin Sodium (Enoxaparin 40 Mg/0.4 Ml Inj) 40 mg SUB-Q QDAY@2200 [facility]; Protocol Furosemide (Furosemide 40 Mg/4 Ml Inj) 40 mg IV 0600,1800 [facility] Levalbuterol HCl (Levalbuterol 1.25 Mg/3 Ml Neb) 1.25 mg IH Q6HRT [facility] Last Admin: 12/31/20 10:42 Dose: 1.25 mg Documented by: Magnesium Hydroxide (Magnesium Hydroxide (Mom) Oral Liqd Udc) 30 ml PO Q4H PRN PRN Reason: Constipation Methylprednisolone Sodium Succinate (Methylprednisolone Sod Succinate 40 Mg/1 Ml Inj) 40 mg IV Q8HR [facility] Last Admin: 12/31/20 14:22 Dose: 40 mg Documented by: Morphine Sulfate (Morphine 2 Mg/1 Ml Inj) 2 mg IV Q4H PRN PRN Reason: Pain, Moderate (4-6) Ondansetron HCl (Ondansetron 4 Mg/2 Ml Inj) 4 mg IV Q8H PRN PRN Reason: Nausea And Vomiting Sodium Chloride (Sodium Chloride 0.9% 10 Ml Flush Syringe) 10 ml IV BID [facility] Last Admin: 12/31/20 12:30 Dose: 10 ml Documented by: Sodium Chloride (Sodium Chloride 0.9% 10 Ml Flush Syringe) 10 ml IV PRN PRN PRN Reason: LINE FLUSH Physical Examination - Physical Exam Narrative exam: General appearance: Alert in NAD pleasant Eyes: anicteric sclerae, moist conjunctivae; no lid-lag; PERRLA HENT: Normocephalic, Atraumatic; normal external ears, nares open, oropharynx clear Neck: supple, tracheal midline, no JVD Lungs: Bilateral wheezing CV: RRR no murmur Abdomen: Soft, non-tender; no masses or hepatosplenomegaly Extremities: no edema, no cyanosis Skin: No rash. Psych: no agitated Neuro: alert and oriented x 3. Moving all extermities - Constitutional Vitals: Vital Signs Temp Pulse Resp BP Pulse Ox 97.9 F 78 17 161/72 98 12/31/20 10:35 12/31/20 12:55 12/31/20 12:55 12/31/20 12:29 12/31/20 12:55 Temperature -Last 24 Hours Temperature 97.9 F Temperature 98.5 F Temperature 98.3 F Results - Labs CBC & Chem 7: 12/31/20 04:49 12/31/20 04:49 Labs: Abnormal lab results 12/30/20 12/30/20 12/30/20 Range/Units 20:13 20:13 20:13 RBC 5.20 H (3.65-5.03) M/mm3 Hct (35.5-45.6) % Lymph % (Auto) (13.4-35.0) % Lymph # (Auto) (1.2-5.4) K/mm3 Seg Neutrophils % (40.0-70.0) % D-Dimer 345.99 H (0-234) ng/mlDDU ABG pH (7.350-7.450) pH Units ABG pO2 (80.0-90.0) mm Hg ABG O2 Saturation (95.0-99.0) % Oxyhemoglobin (95.0-99.0) % Sodium 136 L (137-145) mmol/L Potassium (3.6-5.0) mmol/L Glucose 126 H (75-100) mg/dL Calcium 8.3 L (8.4-10.2) mg/dL Magnesium 2.40 H (1.7-2.3) mg/dL Lactate Dehydrogenase 305 H (91-180) units/L Total Creatine Kinase 476 H (55-170) units/L Albumin 3.8 L (3.9-5) g/dL 12/30/20 12/30/20 12/31/20 Range/Units 20:13 20:40 04:49 RBC 5.29 H (3.65-5.03) M/mm3 Hct 46.2 H (35.5-45.6) % Lymph % (Auto) 11.8 L (13.4-35.0) % Lymph # (Auto) 0.6 L (1.2-5.4) K/mm3 Seg Neutrophils % 86.8 H (40.0-70.0) % D-Dimer (0-234) ng/mlDDU ABG pH 7.336 L (7.350-7.450) pH Units ABG pO2 59.7 L (80.0-90.0) mm Hg ABG O2 Saturation 90.1 L (95.0-99.0) % Oxyhemoglobin 88.4 L (95.0-99.0) % Sodium (137-145) mmol/L Potassium (3.6-5.0) mmol/L Glucose 126 H (75-100) mg/dL Calcium (8.4-10.2) mg/dL Magnesium (1.7-2.3) mg/dL Lactate Dehydrogenase 246 H (91-180) units/L Total Creatine Kinase (55-170) units/L Albumin (3.9-5) g/dL 12/31/20 Range/Units 04:49 RBC (3.65-5.03) M/mm3 Hct (35.5-45.6) % Lymph % (Auto) (13.4-35.0) % Lymph # (Auto) (1.2-5.4) K/mm3 Seg Neutrophils % (40.0-70.0) % D-Dimer (0-234) ng/mlDDU ABG pH (7.350-7.450) pH Units ABG pO2 (80.0-90.0) mm Hg ABG O2 Saturation (95.0-99.0) % Oxyhemoglobin (95.0-99.0) % Sodium (137-145) mmol/L Potassium 5.1 H D (3.6-5.0) mmol/L Glucose 186 H (75-100) mg/dL Calcium (8.4-10.2) mg/dL Magnesium (1.7-2.3) mg/dL Lactate Dehydrogenase (91-180) units/L Total Creatine Kinase (55-170) units/L Albumin (3.9-5) g/dL Assessment and Plan Cultures: Blood culture pending Assessment: 30-year-old male with history of asthma requiring intubations in the past, hypertension, obesity, COVID-19 infection in August 2021 and October 2020, admitted on 12/30/2020 secondary to 7-day history of worsening shortness of breath and cough: #Asthma exacerbation: No evidence of obvious pneumonia. Doubt COVID-19 infection, patient with COVID-19 infection in the past x2. Procalcitonin is low. CT chest no PE, bilateral interstitial prominence. #Mild hypoxia: Currently on 2 L nasal cannula, likely due to asthma exacerbation Recommendations: -Treat asthma exacerbation -Follow SARS-CoV-2 PCR if positive start remdesivir for 5 days -No indication for antimicrobials at this time Will follow. Yovana Rosa MD Infectious Diseases [employer] [facility] M [phone] O [phone]
--- NOTE | 2020-12-31 15:32 | Consultation ---
History of Present Illness Reason for consult: dyspnea, asthma History of present illness: 50-year-old male with known history of hypertension, obesity, asthma with 2 intubations in the past and a history of COVID-19 presenting to the emergency room today via EMS with shortness of breath over the past few days. He denies any fever or chills, no chest pain, no nausea or vomiting, no headache or dizziness, no diaphoresis. Patient denies any sick contacts and no recent travel. Denies any contact with anyone with COVID-19. Patient was said to be in severe respiratory distress in the field which required nonrebreather and was subsequently given epinephrine, magnesium and steroids. Upon arrival in the emergency room patient was placed on BiPAP and also had nebulizing treatments with Xopenex. He thereafter had significant improvement with his breathing. Patient also indicates that he has had chronic bilateral lower extremity swelling. He has not had any lower extremity pain. Work-up in the emergency room today including chest x-ray was unremarkable. Patient is being admitted with acute respiratory failure secondary to asthma exacerbation. Patient reports he is being followed at [facility]. Currently only on Xopenex inhaler and nebulizer treatments at home. Patient not on LAMA/ICS combination Past History Past Medical History: hypertension, other (Asthma-intubated x2 in the past, obesity, COVID-19 x2. ) Social history: no significant social history Family history: no significant family history Medications and Allergies Allergies Allergy/AdvReac Type Severity Reaction Status Date / Time albuterol AdvReac Shortness Verified 04/22/19 18:39 of Breath Home Medications Medication Instructions Recorded Confirmed Last Taken Type Levalbuterol 1 dose IH Q4HR PRN #30 09/03/20 12/31/20 Unknown Rx Levalbuterol Hfa 45 Mcg/Puff 2 puff IH Q6H PRN #1 inhalation 09/03/20 12/31/20 Unknown Rx [Xopenex Hfa (Nf)] Losartan/Hydrochlorothiazide 1 each PO DAILY 12/31/20 12/31/20 Unknown History [Hyzaar 100-12.5 Tablet] Active Meds: Active Medications Acetaminophen (Acetaminophen 325 Mg Tab) 650 mg PO Q4H PRN PRN Reason: Pain MILD(1-3)/Fever >100.5/PANIAGUA Amlodipine Besylate (Amlodipine 10 Mg Tab) 10 mg PO QDAY [facility] Last Admin: 12/31/20 12:29 Dose: 10 mg Documented by: Carvedilol (Carvedilol 6.25 Mg Tab) 6.25 mg PO BID [facility] Last Admin: 12/31/20 12:29 Dose: 6.25 mg Documented by: Enoxaparin Sodium (Enoxaparin 40 Mg/0.4 Ml Inj) 40 mg SUB-Q QDAY@2200 [facility]; Protocol Furosemide (Furosemide 40 Mg/4 Ml Inj) 40 mg IV 0600,1800 [facility] Levalbuterol HCl (Levalbuterol 1.25 Mg/3 Ml Neb) 1.25 mg IH Q6HRT [facility] Last Admin: 12/31/20 10:42 Dose: 1.25 mg Documented by: Magnesium Hydroxide (Magnesium Hydroxide (Mom) Oral Liqd Udc) 30 ml PO Q4H PRN PRN Reason: Constipation Methylprednisolone Sodium Succinate (Methylprednisolone Sod Succinate 40 Mg/1 Ml Inj) 40 mg IV Q8HR [facility] Last Admin: 12/31/20 14:22 Dose: 40 mg Documented by: Morphine Sulfate (Morphine 2 Mg/1 Ml Inj) 2 mg IV Q4H PRN PRN Reason: Pain, Moderate (4-6) Ondansetron HCl (Ondansetron 4 Mg/2 Ml Inj) 4 mg IV Q8H PRN PRN Reason: Nausea And Vomiting Sodium Chloride (Sodium Chloride 0.9% 10 Ml Flush Syringe) 10 ml IV BID [facility] Last Admin: 12/31/20 12:30 Dose: 10 ml Documented by: Sodium Chloride (Sodium Chloride 0.9% 10 Ml Flush Syringe) 10 ml IV PRN PRN PRN Reason: LINE FLUSH Review of Systems All systems: negative Respiratory: cough, shortness of breath, wheezing Physical Examination Vital signs: Vital Signs Pulse Ox 99 12/30/20 20:06 General appearance: no acute distress, alert Eyes: non-icteric ENT: oropharynx moist, other Neck: supple (Crowded oropharynx), no JVD Ascultation: Bilateral: diminished breath sounds, wheezes (Faint) Cardiovascular: regular rate and rhythm Gastrointestinal: normoactive bowel sounds, soft, non-tender Integumentary: normal Extremities: no cyanosis, no edema, pink and warm Musculoskeletal: no deformities Gait: other (Not examined) normal mental status, non-focal exam mood appropriate Results - Laboratory Findings CBC and BMP: 12/31/20 04:49 12/31/20 04:49 ABG ABG pH 7.336 pH Units (7.350-7.450) L 12/30/20 20:40 ABG pCO2 47.3 mm Hg 12/30/20 20:40 ABG pO2 59.7 mm Hg (80.0-90.0) L 12/30/20 20:40 ABG O2 Saturation 90.1 % (95.0-99.0) L 12/30/20 20:40 PT/INR, D-dimer PT 12.8 Sec. (12.2-14.9) 12/31/20 04:49 INR 0.97 (0.87-1.13) 12/31/20 04:49 D-Dimer 345.99 ng/mlDDU (0-234) H 12/30/20 20:13 Abnormal lab findings: Abnormal Labs 12/30/20 12/30/20 12/30/20 20:13 20:13 20:13 RBC 5.20 H Hct Lymph % (Auto) Lymph # (Auto) Seg Neutrophils % D-Dimer 345.99 H ABG pH ABG pO2 ABG O2 Saturation Oxyhemoglobin Sodium 136 L Potassium Glucose 126 H Calcium 8.3 L Magnesium 2.40 H Lactate Dehydrogenase 305 H Total Creatine Kinase 476 H Albumin 3.8 L 12/30/20 12/30/20 12/31/20 20:13 20:40 04:49 RBC 5.29 H Hct 46.2 H Lymph % (Auto) 11.8 L Lymph # (Auto) 0.6 L Seg Neutrophils % 86.8 H D-Dimer ABG pH 7.336 L ABG pO2 59.7 L ABG O2 Saturation 90.1 L Oxyhemoglobin 88.4 L Sodium Potassium Glucose 126 H Calcium Magnesium Lactate Dehydrogenase 246 H Total Creatine Kinase Albumin 12/31/20 04:49 RBC Hct Lymph % (Auto) Lymph # (Auto) Seg Neutrophils % D-Dimer ABG pH ABG pO2 ABG O2 Saturation Oxyhemoglobin Sodium Potassium 5.1 H D Glucose 186 H Calcium Magnesium Lactate Dehydrogenase Total Creatine Kinase Albumin - Diagnostic Findings Chest x-ray: image reviewed (No acute finding) CT scan - chest: image reviewed (CTA chest was unremarkable) Assessment and Plan Impression: Acute hypoxic/hypercapnic respiratory failure, improved Asthma, moderately persistent with complication and acute exacerbation. Recommendation: Continue with the nebulized levo albuterol and IV steroid which can be tapered to p.o. prednisone as of tomorrow. Patient will require combination of LABA/ICS Possible discharge in next 24 hours or so if he continues to improve
--- NOTE | 2020-12-31 15:58 | Discharge Summary ---
Providers - Providers Date of Admission: 12/30/20 21:58 Date of discharge: 12/31/20 Attending physician: MARK HERNANDEZ 12/30/20 22:15 Consult to Physician [CONS] Routine Comment: Consulting Provider: CHRISTOPH POST Physician Instructions: Reason For Exam: Status Asthmaticus,Resp. Failure 12/31/20 07:59 Consult to Physician [CONS] Routine Comment: Consulting Provider: INGRID YOUSIF Physician Instructions: Reason For Exam: Respiratory failure, PUI Hospitalization Condition: Serious Pertinent studies: CXR: No infiltrates CTA chest: 1. No evidence for central PTE. The peripheral pulmonary arteries more difficult to evaluate due to contrast bolus timing and motion. 2. Bilateral increased interstitial prominence in the lung bases. Findings could represent mild edema and/or developing infiltrate. 3. Bilateral upper lobe nodular densities measuring up to 8 mm. Hospital course: 50-year-old male with known history of hypertension, obesity, asthma with 2 intubations in the past and a history of COVID-19 x2 in the past presenting to the emergency room via EMS with shortness of breath over the past few days. Upon arrival in the emergency room patient was placed on BiPAP and also had nebulizing treatments with Xopenex. Work-up in the emergency room today including chest x-ray was unremarkable. CTA chest showed Bilateral increased interstitial prominence in the lung bases - Findings could represent mild edema and/or developing infiltrate. Patient was admitted with acute respiratory failure secondary to asthma exacerbation. Patient was admitted to medical floor with scheduled nebs, iv abx, iv steroids and supplemental O2 to keep O2 sat at 94%. Procalcitonin was low/normal so abx was discontinued by ID. Repeat COVID test was ordered and was pending. Hid BP was elevated and placed on antihypertensives. Got call from [facility] and patient will be transferred to [facility] under care for Dr Stafford. Disposition: [id number] ANOTHER TYPE [facility]THCARE Final Discharge Diagnosis (Prints w/discharge instructions): Acute hypoxic respiratory failure. Status asthmaticus. Possible early PNA. B/l Lung nodule. h/o COVID 19. obesity. hyperkalemia - K 5.1. HTN, accelerated Time spent for discharge: 45 minutes Core Measure Documentation - Palliative Care Palliative Care/ Comfort Measures: Not Applicable - Core Measures Any of the following diagnoses?: none Exam - Physical Exam Narrative exam: Limited physical exam due to COVID-19 pandemic to minimize transmission of the disease and to preserve PPE. Vital reviewed and stable. GENERAL: well-developed well-nourished lying on bed appeared to be in no discomfort. HEENT: Normocephalic. Atraumatic. NECK: Supple. CHEST/LUNGS: breathing nonlabored. HEART/CARDIOVASCULAR: Heart rate stable on telemetry ABDOMEN: Visibly not distended SKIN: There is no rash NEURO: No focal motor deficit. Follows command. MUSCULOSKELETAL: No joint effusion EXTRIMITY: No swelling, no cyanosis or clubbing. PSYCH: Cooperative. - Constitutional Vitals: Temp Pulse Resp BP Pulse Ox 97.9 F 78 17 161/72 98 12/31/20 10:35 12/31/20 12:55 12/31/20 12:55 12/31/20 12:29 12/31/20 12:55 Plan Activity: advance as tolerated Weight Bearing Status: Weight Bear as Tolerated Diet: low fat, low salt Follow up with: PRIMARY CARE, [Referring] - 3-5 Days
[2020-12-31] MEDS ORDERED: FUROSEMIDE 40 MG/4 ML INJ IV SCH (18:00)
[2020-12-31 19:39] VITALS: BP 169/95
[2020-12-31] MEDS ORDERED: ALBUTEROL 2.5 MG/3 ML NEBU IH SCH (20:00)
[2020-12-31] MEDS ORDERED: ENOXAPARIN 40 MG/0.4 ML INJ SUB-Q SCH (22:00)
--- NOTE | 2021-01-02 12:51 | Electrocardiograph Report ---
[facility] Test Date: 2020-12-30 Test Time: 20:32:05 Pat Name: ELIZABETH HUDSON Department: Room: A364 1 Gender: M [employer] Project [employer]: : 1970 Requested By: ANDREW NO Order Number: [id number] Reading MD: Kai Redd Measurements Intervals [place] Rate: 100 P: 76 SC: 153 QRS: -29 QRSD: 91 T: 67 QT: 359 QTc: 465 Interpretive Statements Sinus tachycardia No previous ECG available for comparison Electronically Signed On 01-02-2021 12:51:10 EDT by Kai Redd
== END 2020-12-31 20:25 | disposition other institution (70) ==
LOC: ED 19:56 → 3A 21:58
PROVIDERS: ADMIT Internal Medicine Geriatric Medicine; ATTEND Internal Medicine
DX: J96.01 Acute respiratory failure with hypoxia (principal); Z20.822 Contact with and (suspected) exposure to COVID-19; J45.902 Unspecified asthma with status asthmaticus; I10 Essential (primary) hypertension; R60.0 Localized edema; E87.5 Hyperkalemia; R77.8 Other specified abnormalities of plasma proteins; R91.1 Solitary pulmonary nodule; Z79.899 Other long term (current) drug therapy
CPT/HCPCS: 36415; 71045; 71275; 80048; 80053; 82140; 82550; 82728; 82803; 82947; 83615; 83735; 83880; 84145; 84484; 85025; 85027; 85379; 85610; 86140; 87040; 93005; 94640; 94644; 96372; 96374; 96375; 96376; 99291; G0378; J0171; J1940; J2920; J7040; Q9967; U0003